=== PATIENT | female | born 1960 | race Caucasian/White ===

== ENCOUNTER 2023-04-18 08:04 | Inpatient (IN) | payer MEDICAID ==
[~2023-04-18] VITALS: Ht 170.2 cm; Wt 55.3 kg
[~2023-04-18 08:04] MED LIST: BENA5TAB40 MT; MAGN400C MT; METF-414 MT; P20 MT; RIBO100T9 MT
[2023-04-18 08:37] LABS: BASOPHILS % 0.8 % (0.0-2.0); DIFFERENTIAL COMMENT 0; EOSINOPHILS % 1.5 % (0.0-5.0); HEMOGLOBIN. 10.4 g/dL (12.0-16.0); LYMPHOCYTES % 10.5 % (20.0-50.0); MEAN CORPUSCULAR HEMOGLOBIN 24.3 pg (28.0-32.0); MEAN CORPUSCULAR HGB CONC 30.7 g/dL (31.0-37.0); MEAN PLATELET VOLUME 7.3 fl (7.4-10.4); MONOCYTES % 5.4 % (2.0-8.0); NEUTROPHILS % 81.8 % (40.0-76.0); PLATELET 726 x1000/uL (130-400); RED CELL DISTRIBUTION WIDTH 17.5 % (11.6-14.6); WHITE BLOOD COUNT 17.9 x1000/uL (4.5-11.0)
[2023-04-18] MEDS: IPRATROPIUM BROMIDE (0.02%) 0.5MG/2.5ML NEB HHN STA (08:50)
[2023-04-18 08:58] LABS: ALANINE AMINOTRANSFERASE < 7 IU/L (10-49); ALBUMIN 3.2 g/dL (3.2-4.8); ASPARTATE AMINOTRANSFERASE 23 IU/L (<34); BILIRUBIN TOTAL 0.3 mg/dL (0.1-1.0); CALCIUM 8.7 mg/dL (8.7-10.4); CARBON DIOXIDE 26 mEq/L (21-32); CHLORIDE 102 mEq/L (98-107); CREATININE 0.5 mg/dL (0.6-1.0); GLUCOSE 69 mg/dL (70-105); POTASSIUM 4.1 mEq/L (3.5-5.1); PROTEIN TOTAL 5.7 g/dL (6.0-8.3); SODIUM 136 mEq/L (136-145); TROPONIN I HIGH SENSITIVITY 21 ng/L (3.0-34); UREA NITROGEN BLOOD 15 mg/dL (9-23)
[2023-04-18 09:00] VITALS: PULSE 104; RESP 28; O2SAT 96
[2023-04-18] MEDS: ALBUTEROL (0.083%) 2.5MG/3ML NEB HHN STA (09:00)
[2023-04-18] MEDS: METHYLPREDNISOLONE SOD SUCC 125MG/2ML (ACT-O-VIAL) IV STA (09:16)
[2023-04-18] MEDS: MAGNESIUM 2 G PREMIX 50 ML IV ONE (09:16)
[2023-04-18] MEDS: FUROSEMIDE 40MG/4ML VIAL IVP SCH (14:23)
[2023-04-18] MEDS ORDERED: ACETAMINOPHEN 325MG TABLET PO PRN (15:30)
[2023-04-18] MEDS ORDERED: CLONIDINE 0.1MG TABLET PO PRN (15:30)
[2023-04-18 16:00] VITALS: BP 112/55; PULSE 97; RESP 20; RESP 22; TEMP 97
[2023-04-18] MEDS: BLOOD SUGAR DIAGNOSTIC STRIP TEST SCH (17:10)
[2023-04-18] MEDS: PREDNISONE 20MG TABLET PO SCH (17:30)
[2023-04-18] MEDS: INSULIN LISPRO 100 UNITS/ML SUBCUT SCH (17:31)
[2023-04-18 18:35] LABS: CLARITY URINE CLEAR (CLEAR); COLOR URINE YELLOW (YELLOW); GLUCOSE URINE NEGATIVE (NEGATIVE); KETONES URINE NEGATIVE (NEGATIVE); LEUKOCYTE ESTERASE URINE NEGATIVE (NEGATIVE); NITRITE URINE NEGATIVE (NEGATIVE); OCCULT BLOOD URINE NEGATIVE (NEGATIVE); PROTEIN URINE NEGATIVE (NEGATIVE); SPECIFIC GRAVITY URINE 1.007 (1.005-1.030); UROBILINOGEN URINE 0.2 E.U./dL (0.2-1.0)
[2023-04-18 18:59] LABS: *AMPHETAMINES SCREEN URINE NEGATIVE (NEGATIVE); *BARBITURATES SCREEN URINE NEGATIVE (NEGATIVE); *BENZODIAZEPINES SCREEN URINE NEGATIVE (NEGATIVE); *COCAINE SCREEN URINE NEGATIVE (NEGATIVE); CANNABINOID URINE SCREEN NEGATIVE (NEGATIVE); ECSTASY MDMA SCREEN URINE NEGATIVE (NEGATIVE); METHADONE URINE SCREEN Neg (NEGATIVE); OPIATES URINE SCREEN NEGATIVE (NEGATIVE); PHENCYCLIDINE URINE SCREEN NEGATIVE (NEGATIVE)
[2023-04-18] MEDS: ACETAMINOPHEN 325MG TABLET PO PRN (19:31)
[2023-04-18 20:00] VITALS: BP 113/70; PULSE 92; RESP 18; TEMP 98
[2023-04-19] VITALS (9 sets, daily range): BP systolic 104–114; BP diastolic 64–78; PULSE 82–101; RESP 18–32; TEMP 97.2–98.3; O2SAT 96
[2023-04-19] MEDS: IPRATROPIUM/ALBUTEROL 0.5-3(2.5)MG/3ML NEB HHN SCH (01:52)
[2023-04-19 05:47] LABS: HEMATOCRIT. 31.8 % (36.0-48.0); HEMOGLOBIN. 9.7 g/dL (12.0-16.0); MEAN CORPUSCULAR HEMOGLOBIN 24.2 pg (28.0-32.0); MEAN CORPUSCULAR HGB CONC 30.5 g/dL (31.0-37.0); MEAN CORPUSCULAR VOLUME 79.4 fL (81.0-99.0); PLATELET 670 x1000/uL (130-400); RED BLOOD CELL COUNT 4.01 mill/uL (4.2-5.4); WHITE BLOOD COUNT 17.6 x1000/uL (4.5-11.0)
[2023-04-19 05:54] LABS: CALCIUM 8.6 mg/dL (8.7-10.4); CARBON DIOXIDE 26 mEq/L (21-32); CHLORIDE 102 mEq/L (98-107); CREATININE 0.8 mg/dL (0.6-1.0); GLUCOSE 151 mg/dL (70-105); POTASSIUM 4.7 mEq/L (3.5-5.1); SODIUM 135 mEq/L (136-145); UREA NITROGEN BLOOD 21 mg/dL (9-23)
[2023-04-19 06:39] LABS: DIFFERENTIAL COMMENT 1
[2023-04-19 15:36] LABS: NUCLEATED RED BLOOD CELLS 2 /100 WBC; PLATELET ESTIMATE INCREASED
[2023-04-19 15:37] LABS: TROPONIN I HIGH SENSITIVITY 8 ng/L (3.0-34)
[2023-04-19] MEDS: ONDANSETRON HCL 4MG/2ML INJ IV PRN (16:21)
[2023-04-19] MEDS: PREDNISONE 10MG TABLET PO SCH (17:48)
[2023-04-20] VITALS (7 sets, daily range): BP systolic 97–103; BP diastolic 52–67; PULSE 84–97; RESP 18–22; TEMP 97.2–98.4
[2023-04-20 01:10] LABS: TROPONIN I HIGH SENSITIVITY 12 ng/L (3.0-34)
[2023-04-20 07:48] LABS: HEMATOCRIT. 31.1 % (36.0-48.0); HEMOGLOBIN. 9.6 g/dL (12.0-16.0); MEAN CORPUSCULAR HEMOGLOBIN 24.1 pg (28.0-32.0); MEAN CORPUSCULAR HGB CONC 30.8 g/dL (31.0-37.0); MEAN CORPUSCULAR VOLUME 78.4 fL (81.0-99.0); MEAN PLATELET VOLUME 7.8 fl (7.4-10.4); PLATELET 675 x1000/uL (130-400); RED BLOOD CELL COUNT 3.97 mill/uL (4.2-5.4); RED CELL DISTRIBUTION WIDTH 17.2 % (11.6-14.6); WHITE BLOOD COUNT 22.7 x1000/uL (4.5-11.0)
[2023-04-20 08:04] LABS: DIFFERENTIAL COMMENT 1
[2023-04-20 08:43] LABS: CALCIUM 8.8 mg/dL (8.7-10.4); CARBON DIOXIDE 33 mEq/L (21-32); CHLORIDE 101 mEq/L (98-107); CHOLESTEROL 147 mg/dL (<200); CREATININE 0.7 mg/dL (0.6-1.0); GLUCOSE 117 mg/dL (70-105); HDL CHOLESTEROL 45 mg/dL (>65); LDL CHOLESTEROL 84 mg/dL (5-100); POTASSIUM 4.4 mEq/L (3.5-5.1); SODIUM 139 mEq/L (136-145); TRIGLYCERIDE 118 mg/dL (0-150); UREA NITROGEN BLOOD 32 mg/dL (9-23)
[2023-04-20] MEDS: ASPIRIN 81MG TABLET PO SCH (09:00)
[2023-04-20] MEDS: DOCUSATE SODIUM 100MG CAPSULE PO PRN (09:37)
[2023-04-20] MEDS: LEVOFLOXACIN 250MG TABLET PO SCH (16:17)
[2023-04-20 18:35] LABS: ANISOCYTOSIS 1+; HYPOCHROMASIA 1+; MICROCYTOSIS 1+; PLATELET ESTIMATE INCREASED
[2023-04-21] VITALS (9 sets, daily range): BP systolic 91–110; BP diastolic 58–69; PULSE 91–104; RESP 18–20; TEMP 97.5–100.4; O2SAT 93–98
[2023-04-21] MEDS: DEXTROSE 50% WATER 50ML SYRINGE IV PRN (05:41)
[2023-04-21] MEDS: PANTOPRAZOLE 40MG DR TABLET PO SCH (06:37)
[2023-04-21 07:45] LABS: CALCIUM 8.7 mg/dL (8.7-10.4); CARBON DIOXIDE 37 mEq/L (21-32); CHLORIDE 100 mEq/L (98-107); CREATININE 0.5 mg/dL (0.6-1.0); GLUCOSE 86 mg/dL (70-105); POTASSIUM 4.1 mEq/L (3.5-5.1); SODIUM 140 mEq/L (136-145); UREA NITROGEN BLOOD 26 mg/dL (9-23)
[2023-04-21 07:53] LABS: BASOPHILS % 0.3 % (0.0-2.0); DIFFERENTIAL COMMENT 0; EOSINOPHILS % 0.8 % (0.0-5.0); HEMATOCRIT. 30.2 % (36.0-48.0); HEMOGLOBIN. 9.4 g/dL (12.0-16.0); LYMPHOCYTES % 10.2 % (20.0-50.0); MEAN CORPUSCULAR HEMOGLOBIN 24.5 pg (28.0-32.0); MEAN CORPUSCULAR HGB CONC 31.3 g/dL (31.0-37.0); MEAN CORPUSCULAR VOLUME 78.2 fL (81.0-99.0); MEAN PLATELET VOLUME 7.9 fl (7.4-10.4); MONOCYTES % 11.5 % (2.0-8.0); NEUTROPHILS % 77.2 % (40.0-76.0); PLATELET 555 x1000/uL (130-400); RED BLOOD CELL COUNT 3.86 mill/uL (4.2-5.4); WHITE BLOOD COUNT 14.9 x1000/uL (4.5-11.0)
[2023-04-21] MEDS: PREDNISONE 10MG TABLET PO SCH (08:31)
[2023-04-21] MEDS ORDERED: LEVO750T68 MT (14:12)
[2023-04-21] MEDS ORDERED: P20 MT (14:12)
== END 2023-04-21 19:11 | disposition home or self-care (01) | DRG 720 ==
LOC: ER 08:04 → 8WST 10:52 → EDBEDREQ 10:55 → EDBEDREQSVC 13:53
PROVIDERS: ADMIT Family Medicine Adult Medicine; ATTEND Family Medicine Adult Medicine
DX: A41.51 Sepsis due to Escherichia coli [E. coli] (principal); J96.21 Acute and chronic respiratory failure with hypoxia; I50.33 Acute on chronic diastolic (congestive) heart failure; J44.1 Chronic obstructive pulmonary disease with (acute) exacerbation; N39.0 Urinary tract infection, site not specified; D50.9 Iron deficiency anemia, unspecified; E11.9 Type 2 diabetes mellitus without complications; B96.20 Unspecified Escherichia coli [E. coli] as the cause of diseases classified elsewhere; J81.1 Chronic pulmonary edema; I11.9 Hypertensive heart disease without heart failure; J84.10 Pulmonary fibrosis, unspecified; Z99.81 Dependence on supplemental oxygen; D75.839 Thrombocytosis, unspecified; M94.0 Chondrocostal junction syndrome [Tietze]; Z86.16 Personal history of COVID-19; Z88.2 Allergy status to sulfonamides
CPT/HCPCS: 36415; 71045; 80048; 80053; 80061; 80305; 81003; 82962; 83735; 83880; 84145; 84484; 85025; 87186; 93005; 93306; 94640; 99291; G0378; J1815; J1940; J2405; J2930; J3475; J7512